=== PATIENT | female | born 1945 | race Two or more races ===

== ENCOUNTER 2018-09-03 10:12 | Inpatient (IN) | payer OTHER ==
[~2018-09-03] VITALS: Ht 167.6 cm; Wt 86.6 kg
--- NOTE | 2018-09-03 10:29 | NUR ---
PT BIB [facility] [address] & [employer] OFFICERS. PT C/O MORALES & BLURRED VISION, BP ELEVATED HASN'T TAKING HER BP MEDS, IN CUSTODY SINCE SATURDAY. PT IS AAOX4, NOT IN RESPIRATORY DISTRESS, HOOKED TO RESEARCH CONSULTANT, KEPT RESTED AND COMFORTABLE, WILL CONTINUE TO MONITOR.
--- NOTE | 2018-09-03 10:30 | NUR ---
IV LINE ESTABLISHED, LABS DRAWNED AND SENT TO LAB.
--- NOTE | 2018-09-03 10:40 | NUR ---
SEEN AND EXAMINED BY DR. QUINTEROS.
[2018-09-03] MEDS ORDERED: ASPIRIN 81 MG TAB.CHEW ONE (10:47)
[2018-09-03 10:48] LABS: BASOPHILS # (AUTO) 0.1 /CMM (0.0-0.2); EOSINOPHILS % (AUTO) 4.8 % (0.0-6.0); HEMATOCRIT 34 % (33-45); HEMOGLOBIN 11.3 g/dL (11.5-14.8); LYMPHOCYTES # (AUTO) 1.3 /CMM (0.8-4.8); LYMPHOCYTES % (AUTO) 25.4 % (20.0-44.0); MEAN CORPUSCULAR HGB CONC 34 g/dl (31.0-36.0); MEAN CORPUSCULAR VOLUME 88 fL (82-100); MONOCYTES # (AUTO) 0.3 /CMM (0.1-1.30); MONOCYTES % (AUTO) 5.9 % (2.0-12.0); NEUTROPHILS # (AUTO) 3.3 /CMM (1.8-8.9); NEUTROPHILS % (AUTO) 62.9 % (43.0-81.0); PLATELET COUNT (AUTO) 187 /CMM (150-450); WHITE BLOOD COUNT (AUTO) 5.2 K/uL (4.3-11.0)
--- NOTE | 2018-09-03 10:48 | NUR ---
PANEL ON-CALL PAGED
[2018-09-03 10:55] LABS: CALCIUM, SERUM 10.7 mg/dL (8.5-10.1); CARBON DIOXIDE 27 mmol/L (21-32); CHLORIDE 107 mmol/L (98-107); CREATININE 1.1 mg/dL (0.6-1.3); GLUCOSE 125 mg/dL (74-106); POTASSIUM 3.7 mmol/L (3.5-5.1); SODIUM SERUM 141 mmol/L (136-145); UREA NITROGEN, BLOOD 13 mg/dL (7-18)
[2018-09-03 11:00] LABS: ALANINE AMINOTRANSFERASE 19 U/L (12-78); ALBUMIN 3.6 g/dL (3.4-5.0); ALKALINE PHOSPHATASE 88 U/L (46-116); ASPARTATE AMINOTRANSFERASE 17 U/L (15-37); BILIRUBIN,DIRECT 0.1 mg/dL (0.0-0.2); BILIRUBIN,TOTAL 0.4 mg/dL (0.2-1.0); TOTAL PROTEIN, SERUM 7.5 g/dL (6.4-8.2)
[2018-09-03] MEDS ORDERED: ASPIRIN 325 MG TABLET PO ONE (11:00)
[2018-09-03] MEDS ORDERED: hydrALAZINE HCL IV 20 MG VIAL ONE (11:27)
[2018-09-03] MEDS ORDERED: ACETAMINOPHEN 325 MG TABLET PO PRN (11:30)
[2018-09-03] MEDS ORDERED: ZOLPIDEM TARTRATE 5 MG TABLET PO PRN (11:30)
[2018-09-03] MEDS ORDERED: ONDANSETRON HCL/PF 4 MG/2 ML VIAL IVP PRN (11:30)
[2018-09-03] MEDS ORDERED: CLOPIDOGREL BISULFATE 75 MG TABLET PO SCH (11:30)
[2018-09-03] MEDS ORDERED: hydrALAZINE HCL IV 20 MG VIAL IV ONE (11:30)
[2018-09-03] MEDS ORDERED: MORPHINE SULFATE INJ 2 MG/ML DISP.SYRIN IV PRN (11:30)
[2018-09-03] MEDS ORDERED: CARVEDILOL 6.25 MG TABLET PO SCH (11:30)
[2018-09-03] MEDS ORDERED: ASPIRIN 81 MG TAB.CHEW PO SCH (11:30)
[2018-09-03] MEDS ORDERED: NITROGLYCERIN 0.4 MG/TAB BOTTLE SL PRN (11:30)
[2018-09-03] MEDS ORDERED: HYDROCODONE/APAP 5/325MG 1 EACH TABLET ONE (11:53)
[2018-09-03] MEDS ORDERED: HYDROCODONE/APAP 5/325MG 1 EACH TABLET PO ONE (12:00)
--- NOTE | 2018-09-03 12:19 | NUR ---
MASSEUR/MASSEUSE CALLED: STILL WAITING ON A CALL BACK; MAY RECIEVE EMAIL
[2018-09-03] MEDS ORDERED: DOCU100C36 PO (13:30)
[2018-09-03] MEDS ORDERED: CLON0.3T PO (13:30)
[2018-09-03] MEDS ORDERED: OMEP20CA10 PO (13:30)
[2018-09-03] MEDS ORDERED: FURO-144 PO (13:30)
[2018-09-03] MEDS ORDERED: HYDR-4354 PO (13:30)
[2018-09-03] MEDS ORDERED: ATOR80TA PO (13:30)
[2018-09-03] MEDS ORDERED: SITA50TA PO (13:30)
[2018-09-03] MEDS ORDERED: ASPI-1169 PO (13:30)
[2018-09-03] MEDS ORDERED: METO50TA16 PO (13:30)
[2018-09-03] MEDS ORDERED: LOSA50TA39 PO (13:30)
[2018-09-03] MEDS ORDERED: CLOP75TA15 PO (13:30)
[2018-09-03] MEDS ORDERED: AMLO10TA7 PO (13:30)
[2018-09-03] MEDS ORDERED: ZOLP10TA6 PO (13:30)
[2018-09-03] MEDS ORDERED: CARV25TA PO (13:30)
[2018-09-03] MEDS ORDERED: BENA40TA8 PO (13:30)
[2018-09-03] MEDS ORDERED: GABA-534 PO (13:30)
--- NOTE | 2018-09-03 14:07 | NUR ---
BED GIVEN 328-1 TELE.
--- NOTE | 2018-09-03 14:25 | NUR ---
REPORT GIVEN TO REGLA MELO FOR LALITHA.
[2018-09-03] MEDS ORDERED: LOSARTAN POTASSIUM 50 MG TABLET PO SCH (14:30)
[2018-09-03] MEDS ORDERED: GABAPENTIN 300 MG CAPSULE PO SCH (14:30)
[2018-09-03] MEDS ORDERED: FUROSEMIDE 40 MG TABLET PO SCH (14:30)
[2018-09-03] MEDS ORDERED: IOHEXOL-350 100 ML VIAL IV ONE (14:44)
[2018-09-03] MEDS ORDERED: IV NS 0.9% 250 ML IV ONE (14:44)
[2018-09-03] MEDS ORDERED: CT SWABBABLE VALVE TRANS SET 1 EA INFUS.SET MC ONE (14:44)
[2018-09-03] MEDS ORDERED: METOPROLOL TARTRATE INJ 5 MG/5 ML AMPUL ONE (14:45)
--- NOTE | 2018-09-03 15:00 | NUR ---
PT WENT TO RADIOLOGY FOR HEART SCAN.
[2018-09-03] MEDS: ASPIRIN 81 MG TAB.CHEW PO SCH (15:20)
--- NOTE | 2018-09-03 15:20 | NUR ---
STONE RUBBER NOTES RECEIVED PATIENT ALERT AND ORIENTED X4, NO RESPIRATORY DISTRESS NOTED. O2 SAT AT 99% ON ROOM AIR. DENIES ANY CHEST PAIN, TELE MONITOR ON SHOWING SR AT 84. PATIENT HAS A RT AC SL #20G INTACT AND PATENT. SKIN DRY, WARM AND INTACT, NO SKIN BREAKDOWN. PATIENT'S BELONGINGS COUNTED AND SIGNED FOR, AND AT PATIENT'S BEDSIDE. MEDICATIONS GIVEN ORDERED. PATIENT'S NEEDS ATTENDED. BED IN LOW AND LOCKED POSITION, CALL LIGHT WITHIN REACH. MD ORDERS CARRIED OUT. WILL CONTINUE TO MONITOR.
[2018-09-03] MEDS: CLOPIDOGREL BISULFATE 75 MG TABLET PO SCH (15:55)
[2018-09-03] MEDS: AMLODIPINE BESYLATE 10 MG TABLET PO SCH (15:56)
[2018-09-03 16:00] VITALS: BP 169/89
[2018-09-03] MEDS: DOCUSATE SODIUM 100 MG CAPSULE PO SCH (16:04)
[2018-09-03] MEDS: CLONIDINE HCL 0.1 MG TABLET PO SCH (16:04)
[2018-09-03] MEDS: BENAZEPRIL HCL 20 MG TABLET PO SCH (16:05)
[2018-09-03] MEDS: GABAPENTIN 300 MG CAPSULE PO SCH (16:05)
[2018-09-03] MEDS: FUROSEMIDE 40 MG TABLET PO SCH (16:05)
--- NOTE | 2018-09-03 18:20 | NUR ---
TEST CARRIER NOTES PATIENT ALERT AND ORIENTED X4. PATIENT WITH NO RESPIRATORY DISTRESS, NO C/O CHEST PAIN AT THIS TIME. SKIN WARM TO TOUCH. PATIENT'S IV SL ON RAC #20G, INTACT AND PATENT. POLICE OFFICERS STILL AT BEDSIDE IN PATIENT'S ROOM. WILL ENDORSE TO ONCOMING SHIFT.
--- NOTE | 2018-09-03 19:40 | NUR ---
COMMUNITY EDUCATION SPECIALIST OPENING NOTES RECEIVED PATIENT IN BED AWAKE, ALERT AND ORIENTED X4, VERBALLY RESPONSIVE, ABLE TO MAKE NEEDS KNOWN. POLICE OFFICERS AT BEDSIDE. BREATHING EVEN AND UNLABORED. NO SOB NOTED. TOLERATING ROOM AIR. NO COMPLAINTS OF PAIN OR DISCOMFORT. NO FACIAL GRIMACING. IV ON RIGHT AC G#20 INTACT AND PATENT. SKIN DRY AND WARM TO TOUCH. AFEBRILE. ALL OTHER NEEDS MET. SAFETY MEASURES IN PLACE. CALL LIGHT WITHIN REACH. WILL CONTINUE TO MONITOR.
[2018-09-03 20:16] VITALS: BP 146/70
[2018-09-03] MEDS: CARVEDILOL 12.5 MG TABLET PO SCH (20:32)
--- NOTE | 2018-09-03 20:58 | NUR ---
FRUIT RECEIVER NOTES RECEIVED CRITICAL RESULT FOR TROPONIN 0.430. PREVIOUS RESULT WAS 0.403. PATIENT IS SINUS ON TELE MONITOR. NO COMPLAINTS OF CHEST PAIN. INFORMED SALESPERSON HEARING AIDS LOKI YORK WITH NO NEW ORDERS AT THIS TIME. WILL CONTINUE TO MONITOR.
--- NOTE | 2018-09-03 21:08 | NUR ---
HAND BANDER NOTES PATIENT REQUESTED FOR A STRONGER PAIN MEDICATION FOR HEADACHE. PATIENT STATED THAT TYLENOL DID NOT GIVE HER RELIEF. INFORMED LEGAL MEDIATOR LOKI YORK REGARDING PATIENT'S REQUEST WITH ORDERS FOR NORCO 5-325MG Q6H PRN FOR HEADACHE. ORDER NOTED AND CARRIED OUT. WILL CONTINUE TO MONITOR.
[2018-09-03] MEDS: HYDROCODONE/APAP 5/325MG 1 EACH TABLET PO PRN (21:34)
[2018-09-03] MEDS: ATORVASTATIN 40 MG TABLET PO SCH (21:34)
--- NOTE | 2018-09-03 23:57 | NUR ---
COMPOUND FILLER NOTES RECEIVED CRITICAL RESULT FOR TROPONIN 0.441. PREVIOUS RESULT WAS 0.430. PATIENT IS SINUS ON TELE MONITOR. NO COMPLAINTS OF CHEST PAIN. INFORMED MANAGED SERVICES SALES CONSULTANT LOKI YORK WITH NO NEW ORDERS AT THIS TIME. WILL CONTINUE TO MONITOR.
[2018-09-04 00:52] VITALS: BP 133/69
[2018-09-04 04:00] VITALS: BP 164/96
[2018-09-04 06:25] LABS: EOSINOPHILS % (AUTO) 5.2 % (0.0-6.0); HEMATOCRIT 29 % (33-45); LYMPHOCYTES # (AUTO) 1.7 /CMM (0.8-4.8); LYMPHOCYTES % (AUTO) 35.4 % (20.0-44.0); MEAN CORPUSCULAR HGB CONC 34 g/dl (31.0-36.0); MEAN CORPUSCULAR VOLUME 88 fL (82-100); MONOCYTES # (AUTO) 0.3 /CMM (0.1-1.30); MONOCYTES % (AUTO) 6.7 % (2.0-12.0); NEUTROPHILS # (AUTO) 2.4 /CMM (1.8-8.9); NEUTROPHILS % (AUTO) 51.7 % (43.0-81.0); PLATELET COUNT (AUTO) 168 /CMM (150-450); RED BLOOD CELL COUNT(AUTO) 3.34 MIL/uL (4.0-5.2); WHITE BLOOD COUNT (AUTO) 4.7 K/uL (4.3-11.0)
[2018-09-04 06:40] LABS: CHOLESTEROL 186 mg/dL (<200); HDL CHOLESTEROL 36 mg/dL (40-60); LDL 115 mg/dL (0-99); TRIGLYCERIDES 152 mg/dL (30-150)
[2018-09-04 06:42] LABS: ALANINE AMINOTRANSFERASE 14 U/L (12-78); ALKALINE PHOSPHATASE 76 U/L (46-116); ASPARTATE AMINOTRANSFERASE 11 U/L (15-37); BILIRUBIN,TOTAL 0.4 mg/dL (0.2-1.0); CALCIUM, SERUM 10.2 mg/dL (8.5-10.1); CARBON DIOXIDE 24 mmol/L (21-32); CHLORIDE 109 mmol/L (98-107); CREATININE 1.3 mg/dL (0.6-1.3); GLUCOSE 110 mg/dL (74-106); MAGNESIUM 1.7 mg/dL (1.8-2.4); PHOSPHORUS 2.2 mg/dL (2.5-4.9); POTASSIUM 3.4 mmol/L (3.5-5.1); SODIUM SERUM 141 mmol/L (136-145); TOTAL PROTEIN, SERUM 6.4 g/dL (6.4-8.2); UREA NITROGEN, BLOOD 13 mg/dL (7-18)
--- NOTE | 2018-09-04 06:42 | NUR ---
MANAGER EMPLOYMENT NOTES RECEIVED TROPONIN LEVEL OF 0.419. DECREASED FROM PRIOR RESULTS. PATIENT STABLE. NO DISTRESS. NO CHEST PAIN. SINUS ON TELE MONITOR. WILL CONTINUE TO MONITOR.
--- NOTE | 2018-09-04 07:07 | NUR ---
GRAIN MILL WORKER CLOSING NOTES PATIENT RESTING IN BED. NOT IN ANY DISTRESS. POLICE OFFICERS AT BEDSIDE. BREATHING EVEN AND UNLABORED. NO SOB NOTED. TOLERATING ROOM AIR. NO COMPLAINTS OF PAIN OR DISCOMFORT. NO FACIAL GRIMACING. IV ON RIGHT AC G#20 INTACT AND PATENT. SKIN DRY AND WARM TO TOUCH. ALL OTHER NEEDS MET. SAFETY MEASURES IN PLACE. CALL LIGHT WITHIN REACH. WILL ENDORSE TO ONCOMING NURSE FOR LALITHA.
--- NOTE | 2018-09-04 07:40 | NUR ---
GAME ARTIST NOTES PATIENT AWAKE IN BED, ALERT AND ORIENTED X4, OFFICERS AT BEDSIDE. PATIENT WITH NO RESPIRATORY DISTRESS NOTED, DENIES ANY PAIN AT THIS TIME. SKIN DRY AND WARM TO TOUCH. IV SL ON THE RAC #20G INTACT AND PATENT. PATIENT'S NEEDS MET. BED ON LOW AND LOCKED POSITION, CALL LIGHT WITHIN REACH. WILL CONTINUE TO MONITOR.
[2018-09-04 08:00] VITALS: BP 152/87
[2018-09-04] MEDS: PANTOPRAZOLE 40 MG TABLET.DR PO SCH (08:32)
[2018-09-04] MEDS: NEUTRA PHOS 1 POWD.PACKET PO SCH ×2 (08:32→16:39)
[2018-09-04] MEDS: ASPIRIN 81 MG TAB.CHEW PO SCH (08:32)
[2018-09-04] MEDS: BENAZEPRIL HCL 20 MG TABLET PO SCH ×2 (08:33→17:05)
[2018-09-04] MEDS: CLONIDINE HCL 0.1 MG TABLET PO SCH ×3 (08:33→17:05)
[2018-09-04] MEDS: FUROSEMIDE 40 MG TABLET PO SCH ×2 (08:34→17:06)
[2018-09-04] MEDS: ISOSORBIDE DINITRATE (20MG) 20 MG TABLET PO SCH ×2 (08:34→17:06)
[2018-09-04] MEDS: CARVEDILOL 12.5 MG TABLET PO SCH ×2 (08:34→21:00)
[2018-09-04] MEDS: AMLODIPINE BESYLATE 10 MG TABLET PO SCH (08:34)
[2018-09-04] MEDS: LINAGLIPTIN 5 MG TABLET PO SCH (08:35)
[2018-09-04] MEDS: DOCUSATE SODIUM 100 MG CAPSULE PO SCH ×2 (08:35→17:11)
[2018-09-04] MEDS: hydrALAZINE HCL 50 MG TABLET PO SCH ×3 (08:35→17:06)
[2018-09-04] MEDS: CLOPIDOGREL BISULFATE 75 MG TABLET PO SCH (08:35)
[2018-09-04] MEDS: GABAPENTIN 300 MG CAPSULE PO SCH ×3 (08:35→17:07)
[2018-09-04] MEDS: Magnesium 1GM/D5W 100ML PREMIX 100 ML IV SCH ×3 (08:37→09:37)
[2018-09-04] MEDS ORDERED: K PHOS NEUTRAL 250 MG TABLET PO ONE (09:30)
[2018-09-04] MEDS ORDERED: POTASSIUM CHLORIDE 20 MEQ TAB.PRT.SR PO SCH (11:00)
--- NOTE | 2018-09-04 13:14 | NUR ---
M/S RN NOTES PATIENT RELEASED FROM POLICE CUSTODY. ALL VALUABLES ACCOUNTED FOR AND SIGNED, SENT TO SAFE. ALL HOME MEDS SENT TO PHARMACY.
[2018-09-04 16:00] VITALS: BP 123/66
--- NOTE | 2018-09-04 17:46 | NUR ---
M/S RN NOTES PATIENT ALERT AND ORIENTED X4, NO RESPIRATORY DISTRESS NOTED, TOLERATING RA. DENIES ANY PAIN AT THIS TIME. SKIN WARM TO TOUCH. IV SL ON RAC #20G INTACT AND PATENT, NO REDNESS OR INFILTRATION. ALL ORDERS IMPLEMENTED. PATIENT'S NEEDS ATTENDED. WILL ENDORSE TO ONCOMING NURSE.
--- NOTE | 2018-09-04 19:29 | NUR ---
RN MS OPENING NOTES RECEIVED PATIENT IN BED AWAKE, ALERT AND ORIENTED X4, VERBALLY RESPONSIVE, ABLE TO MAKE NEEDS KNOWN. BREATHING EVEN AND UNLABORED. NO SOB NOTED. TOLERATING ROOM AIR. NO COMPLAINTS OF PAIN OR DISCOMFORT. NO FACIAL GRIMACING. IV ON RIGHT AC G#20 INTACT AND PATENT. SKIN DRY AND WARM TO TOUCH. AFEBRILE. ALL OTHER NEEDS MET. SAFETY MEASURES IN PLACE. CALL LIGHT WITHIN REACH. WILL CONTINUE TO MONITOR.
[2018-09-04 20:00] VITALS: BP 128/69
[2018-09-04] MEDS: ATORVASTATIN 40 MG TABLET PO SCH (21:00)
[2018-09-04] MEDS ORDERED: ATORVASTATIN 40 MG TABLET PO SCH (22:00)
[2018-09-04] MEDS: HYDROCODONE/APAP 5/325MG 1 EACH TABLET PO PRN (23:33)
--- NOTE | 2018-09-05 06:35 | NUR ---
RN MS CLOSING NOTES PATIENT RESTING IN BED. NO ACUTE CHANGES THROUGHOUT SHIFT. BREATHING EVEN AND UNLABORED. NO SOB NOTED. TOLERATING ROOM AIR. NO COMPLAINTS OF PAIN OR DISCOMFORT. NO FACIAL GRIMACING. IV ON RIGHT AC G#20 INTACT AND PATENT. SKIN DRY AND WARM TO TOUCH. ALL OTHER NEEDS MET. SAFETY MEASURES IN PLACE. CALL LIGHT WITHIN REACH. WILL ENDORSE TO ONCOMING NURSE FOR LALITHA.
[2018-09-05 07:07] LABS: CALCIUM, SERUM 10.5 mg/dL (8.5-10.1); CARBON DIOXIDE 23 mmol/L (21-32); CHLORIDE 107 mmol/L (98-107); CREATININE 1.4 mg/dL (0.6-1.3); GLUCOSE 110 mg/dL (74-106); PHOSPHORUS 3.2 mg/dL (2.5-4.9); POTASSIUM 3.9 mmol/L (3.5-5.1); SODIUM SERUM 141 mmol/L (136-145); UREA NITROGEN, BLOOD 20 mg/dL (7-18)
[2018-09-05 08:00] VITALS: BP 152/82
--- NOTE | 2018-09-05 08:00 | NUR ---
m/s furniture polisher: initial assessment received pt in bed awake,a/ox4; ambulatory. no c/o pain or any discomfort. for d'c home today. instructed to call for assistance. will monitor.
[2018-09-05 08:14] VITALS: BP 152/82
[2018-09-05] MEDS: AMLODIPINE BESYLATE 10 MG TABLET PO SCH (08:24)
[2018-09-05] MEDS: PANTOPRAZOLE 40 MG TABLET.DR PO SCH (08:24)
[2018-09-05] MEDS: GABAPENTIN 300 MG CAPSULE PO SCH (08:25)
[2018-09-05] MEDS: ISOSORBIDE DINITRATE (20MG) 20 MG TABLET PO SCH (08:25)
[2018-09-05] MEDS: CLOPIDOGREL BISULFATE 75 MG TABLET PO SCH (08:25)
[2018-09-05] MEDS: LINAGLIPTIN 5 MG TABLET PO SCH (08:25)
[2018-09-05] MEDS: BENAZEPRIL HCL 20 MG TABLET PO SCH (08:25)
[2018-09-05 08:26] VITALS: BP 152/82
[2018-09-05] MEDS: DOCUSATE SODIUM 100 MG CAPSULE PO SCH (08:26)
[2018-09-05] MEDS: hydrALAZINE HCL 50 MG TABLET PO SCH (08:26)
[2018-09-05] MEDS: CARVEDILOL 12.5 MG TABLET PO SCH (08:26)
[2018-09-05] MEDS: FUROSEMIDE 40 MG TABLET PO SCH (08:26)
[2018-09-05] MEDS: ASPIRIN 81 MG TAB.CHEW PO SCH (08:26)
[2018-09-05] MEDS: CLONIDINE HCL 0.1 MG TABLET PO SCH (08:26)
[2018-09-05] MEDS ORDERED: hydrALAZINE HCL 50 MG TABLET PO SCH (09:00)
--- NOTE | 2018-09-05 09:00 | NUR ---
m/s sales development associate: cardio f/u new order to received to increase hydralazine to 100mg po tid. pt had 50mg po this morning, will monitor b/p before d'c home today. pt aware. will continue to monitor.
--- NOTE | 2018-09-05 09:15 | NUR ---
m/s nat instructor: md visit seen and examined by dr. tang at this time. pt for d'c home today. pt verbalized understanding.
--- NOTE | 2018-09-05 11:00 | NUR ---
m/s precision lens grinder apprentice: md visit mg (acnp student) at bedside at this time.
--- NOTE | 2018-09-05 12:00 | NUR ---
m/s headhunter: notes receive order to d'c pt home with Discharge instructions <Follow up with PCP in 2 weeks, Resume home meds. order acknowledged.
--- NOTE | 2018-09-05 12:10 | NUR ---
m/s golf course assistant: notes all belongings/valuable returned to pt. discharge instructions with prescriptions given to pt and verbalized understanding. lunch served. pt will go after lunch as stated via taxi with voucher.
--- NOTE | 2018-09-05 12:50 | NUR ---
m/s hydro station operator: notes h/l removed with tip intact with no bleeding, no redness, and no swelling. pt getting dress at this time. will monitor.
--- NOTE | 2018-09-05 13:20 | NUR ---
m/s quality cloth tester: discharged discharged home via taxi with voucher with all d'c papers and valuables in stable condition.
== END 2018-09-05 13:20 | disposition home or self-care (01) | DRG 280 ==
LOC: ER 10:15 → TELE 14:17 → MED 15:44 → TELE 20:07 → MED 09-04 18:41
PROVIDERS: ADMIT Internal Medicine; ATTEND Internal Medicine
DX: I21.4 Non-ST elevation (NSTEMI) myocardial infarction (principal); N17.0 Acute kidney failure with tubular necrosis; E87.1 Hypo-osmolality and hyponatremia; E11.9 Type 2 diabetes mellitus without complications; I10 Essential (primary) hypertension; I25.10 Atherosclerotic heart disease of native coronary artery without angina pectoris; Z95.5 Presence of coronary angioplasty implant and graft; Z86.73 Personal history of transient ischemic attack (TIA), and cerebral infarction without residual deficits; D63.8 Anemia in other chronic diseases classified elsewhere; E78.5 Hyperlipidemia, unspecified; E83.52 Hypercalcemia; E87.6 Hypokalemia; Z79.82 Long term (current) use of aspirin; E83.42 Hypomagnesemia; E83.39 Other disorders of phosphorus metabolism
CPT/HCPCS: 36415; 71045-TC; 75574; 80048-TC; 80053-TC; 80061-TC; 80076-TC; 83735-TC; 84100-TC; 84484-TC; 85025-TC; 87081-TC; 93307-TC; A4216; G0378; J0360; J3475; J3490; J7030; J7040; J7050; Q9967

== ENCOUNTER 2021-01-02 16:04 | Inpatient (IN) | payer MEDICARE, OTHER ==
[~2021-01-02] VITALS: Ht 172.7 cm; Wt 88.6 kg
[~2021-01-02 16:04] MED LIST: AMLO-213 PO; ASPI-1169 PO; ATOR80TA PO; BENA40TA8 PO; CARV25TA PO; CLON0.3T PO; CLOP75TA15 PO; DOCU100C36 PO; FURO-144 PO; GABA-534 PO; HYDR-4354 PO; LOSA50TA39 PO; METO50TA16 PO; OMEP20CA15 PO; SITA50TA PO; ZOLP10TA6 PO
--- NOTE | 2021-01-02 16:18 | NUR ---
nagi, from home, c/o sob 100% on room air. Patient a/ox4, breathing even and unlabored, no sob noted. Needs attended. Kept comfortable.
--- NOTE | 2021-01-02 16:25 | NUR ---
DR. RUIZ AT BEDSIDE FOR EVAL.
[2021-01-02] MEDS ORDERED: ASPIRIN 325 MG TABLET ONE (16:34)
[2021-01-02] MEDS ORDERED: NITROGLYCERIN PACKET 1 GM PACKET ONE (16:34)
--- NOTE | 2021-01-02 16:40 | NUR ---
IV LINE ESTABLISHED, BLOOD DRAWN AND SENT TO LAB.
[2021-01-02 16:48] LABS: BASOPHILS # (AUTO) 0.1 K/uL (0.0-0.2); BASOPHILS % (AUTO) 1.2 % (0.0-2.0); EOSINOPHILS % (AUTO) 2.5 % (0.0-6.0); HEMATOCRIT 28 % (33-45); HEMOGLOBIN 9.3 g/dL (11.5-14.8); LYMPHOCYTES # (AUTO) 1.1 K/uL (0.8-4.8); LYMPHOCYTES % (AUTO) 20.6 % (20.0-44.0); MEAN CORPUSCULAR HGB CONC 34 g/dl (31.0-36.0); MEAN CORPUSCULAR VOLUME 88 fL (82-100); MONOCYTES # (AUTO) 0.3 K/uL (0.1-1.30); MONOCYTES % (AUTO) 4.8 % (2.0-12.0); NEUTROPHILS # (AUTO) 3.9 K/uL (1.8-8.9); NEUTROPHILS % (AUTO) 70.9 % (43.0-81.0); PLATELET COUNT (AUTO) 163 K/uL (150-450); RED BLOOD CELL COUNT(AUTO) 3.14 MIL/uL (4.0-5.2); WHITE BLOOD COUNT (AUTO) 5.6 K/uL (4.3-11.0)
[2021-01-02 16:54] LABS: CALCIUM, SERUM 10.5 mg/dL (8.5-10.1); CARBON DIOXIDE 24 mmol/L (21-32); CHLORIDE 107 mmol/L (98-107); CREATININE 1.8 mg/dL (0.6-1.3); GLUCOSE 103 mg/dL (74-106); POTASSIUM 4.5 mmol/L (3.5-5.1); SODIUM SERUM 141 mmol/L (136-145); UREA NITROGEN, BLOOD 14 mg/dL (7-18)
[2021-01-02] MEDS ORDERED: PROM25TA15 PO (16:58)
[2021-01-02] MEDS ORDERED: TIOT18CA3 IH (16:58)
[2021-01-02] MEDS ORDERED: HYDR-4209 PO (16:58)
[2021-01-02] MEDS ORDERED: ALBU8.5H8 IH (16:58)
[2021-01-02] MEDS ORDERED: LACT10SO3 PO (16:58)
[2021-01-02] MEDS ORDERED: [UNRECOGNIZED DRUG - CODE] PO (16:58)
[2021-01-02] MEDS ORDERED: NITROGLYCERIN PACKET 1 GM PACKET TD ONE (17:00)
[2021-01-02] MEDS ORDERED: ASPIRIN 325 MG TABLET PO ONE (17:00)
[2021-01-02 17:06] LABS: ALANINE AMINOTRANSFERASE 14 U/L (12-78); ALBUMIN 3.4 g/dL (3.4-5.0); ALKALINE PHOSPHATASE 67 U/L (46-116); ASPARTATE AMINOTRANSFERASE 19 U/L (15-37); BILIRUBIN,TOTAL 0.4 mg/dL (0.2-1.0); TOTAL PROTEIN, SERUM 7.4 g/dL (6.4-8.2)
--- NOTE | 2021-01-02 17:14 | NUR ---
[facility] CALLED LIABILITY CLAIMS MANAGER PAGED.
[2021-01-02] MEDS ORDERED: FUROSEMIDE 40 MG/4 ML VIAL ONE (17:26)
[2021-01-02] MEDS ORDERED: FUROSEMIDE 40 MG/4 ML VIAL IV ONE (17:30)
[2021-01-02] MEDS ORDERED: ONDANSETRON HCL/PF 4 MG/2 ML VIAL IVP PRN (18:00)
[2021-01-02] MEDS ORDERED: DOCUSATE SODIUM 100 MG CAPSULE PO PRN (18:00)
[2021-01-02] MEDS ORDERED: NITROGLYCERIN 0.4 MG/TAB BOTTLE SL PRN (18:00)
[2021-01-02] MEDS ORDERED: MAG HYDROX/AL HYDROX/SIMETH 30 ML UDC PO PRN (18:00)
--- NOTE | 2021-01-02 18:11 | NUR ---
PATIENT IS AMBULATORY TO RESTROOM. NO DISTRESS NOTED.
--- NOTE | 2021-01-02 18:15 | NUR ---
BED 324-1
[2021-01-02] MEDS ORDERED: DEXTROSE 50%-WATER 50 ML DISP.SYRIN IV PRN (18:30)
--- NOTE | 2021-01-02 18:45 | NUR ---
TILE LAYER SUPERVISOR AT BEDSIDE.
--- NOTE | 2021-01-02 18:45 | NUR ---
REPORT GIVEN TO MARITZA ARAUZ FOR LALITHA.
--- NOTE | 2021-01-02 19:18 | NUR ---
PRELIMINARY ECHO SHOWED EF 35-40%. ADVISED REGLA NUNEZ OF INITIAL RESULT.
--- NOTE | 2021-01-02 19:25 | NUR ---
PATIENT TRANSFERRED TO ROOM 324-1 VIA ACLS PROTOCOL. IN NO DISTRESS. PATIENT A/OX4, BREATHING EVEN AND UNLABORED. ENDORSED TO LAINA.
[2021-01-02] MEDS ORDERED: IPRATROPIUM NEB FS 0.5 MG/2.5 ML AMPUL.NEB NEB SCH (19:30)
[2021-01-02] MEDS ORDERED: ALBUTEROL FS 2.5 MG/0.5 ML VIAL.NEB NEB SCH (19:30)
--- NOTE | 2021-01-02 19:30 | NUR ---
GLOVE TURNER AND FORMER AUTOMATIC ADMITTING NOTE PT A/OX4; ABLE TO MAKE NEEDS KNOWN. TOLERATING ROOM AIR WELL WITH NO SOB. EXTERNAL FOREST PATHOLOGY TEACHER READS NSR @ 70'S. RAC #20G S/L; PATENT AND INTACT. DENIES PAIN OR DISCOMFORT AT THIS TIME. ALL PATIENT BELONGINGS WITH PT AT BEDSIDE. ORIENTED PATIENT TO ROOM, STAFF, AND UNIT. SAFETY MEASURES IN PLACE: BED IN LOWEST LOCKED POSITION, SIDE RAILS UPX2, CALL LIGHT WITHIN EASY REACH. PT IN STABLE CONDITION; WILL CONTINUE PLAN OF CARE.
[2021-01-02] MEDS: BLOOD SUGAR DIAGNOSTIC 1 EACH STRIP IN SCH (22:57)
[2021-01-02] MEDS: ATORVASTATIN 40 MG TABLET PO SCH (22:58)
--- NOTE | 2021-01-02 23:21 | NUR ---
INDUSTRIAL ROOF PLUMBER NOTE PT C/O 9/10 L ARM PAIN S/P L LIGATION OF AV FISTULA. ADMIN NORCO 10-325MG ORDERED. WILL REASSESS FOR PAIN IN 30 MINUTES.
[2021-01-02] MEDS: ACETAMINOPHEN 325 MG TABLET PO PRN (23:27)
--- NOTE | 2021-01-02 23:28 | NUR ---
PLATE SETTER NOTE PT C/O HEADACHE. ADMIN TYLENOL ORDERED. WILL REASSESS IN 30 MINUTES.
[2021-01-03] VITALS (7 sets, daily range): BP systolic 151–181; BP diastolic 70–98
[2021-01-03] MEDS: MORPHINE SULFATE INJ 2 MG/ML DISP.SYRIN IV PRN ×2 (01:36→16:31)
--- NOTE | 2021-01-03 01:36 | NUR ---
PRODUCE INSPECTOR NOTE PT C/O 11/12 HEADACHE. ADMIN MORPHINE ORDERED. WILL REASSESS IN 30 MINUTES.
--- NOTE | 2021-01-03 04:20 | NUR ---
NURSING HOME MANAGER NOTE PTS BP 172/ 92. HR 70. PAGED DR WALL FOR ORDERS. AWAITING FOR CALL BACK
[2021-01-03] MEDS ORDERED: CLONIDINE HCL 0.1 MG TABLET PO ONE (05:00)
[2021-01-03 06:03] LABS: BASOPHILS # (AUTO) 0.1 K/uL (0.0-0.2); BASOPHILS % (AUTO) 1.2 % (0.0-2.0); EOSINOPHILS % (AUTO) 3.6 % (0.0-6.0); HEMATOCRIT 29 % (33-45); HEMOGLOBIN 9.7 g/dL (11.5-14.8); LYMPHOCYTES # (AUTO) 1.8 K/uL (0.8-4.8); LYMPHOCYTES % (AUTO) 29.9 % (20.0-44.0); MEAN CORPUSCULAR HGB CONC 33 g/dl (31.0-36.0); MEAN CORPUSCULAR VOLUME 89 fL (82-100); MONOCYTES # (AUTO) 0.3 K/uL (0.1-1.30); NEUTROPHILS # (AUTO) 3.6 K/uL (1.8-8.9); NEUTROPHILS % (AUTO) 60.3 % (43.0-81.0); PLATELET COUNT (AUTO) 174 K/uL (150-450); RED BLOOD CELL COUNT(AUTO) 3.28 MIL/uL (4.0-5.2); WHITE BLOOD COUNT (AUTO) 5.9 K/uL (4.3-11.0)
[2021-01-03] MEDS: BLOOD SUGAR DIAGNOSTIC 1 EACH STRIP IN SCH ×4 (06:38→22:06)
[2021-01-03] MEDS: INSULIN REGULAR, HUMAN 100 UNIT/ML 3 ML VIAL SQ PRN ×4 (06:39→22:08)
--- NOTE | 2021-01-03 06:57 | NUR ---
OFFICE SUPPORT ASSOCIATE CLOSING NOTE PT A/OX4; ABLE TO MAKE NEEDS KNOWN. TOLERATING ROOM AIR WELL WITH NO SOB. EXTERNAL SILK HANGER READS NSR @ 70'S. RAC #20G S/L; PATENT AND INTACT. DENIES PAIN OR DISCOMFORT AT THIS TIME. SKIN INTACT. SAFETY MEASURES IN PLACE: BED IN LOWEST LOCKED POSITION, SIDE RAILS UPX2, CALL LIGHT WITHIN EASY REACH. PT IN STABLE CONDITION; WILL ENDORSE PLAN OF CARE TO ONCOMING MORNING RN.
[2021-01-03 07:27] LABS: CHOLESTEROL 149 mg/dL (<200); HDL CHOLESTEROL 51 mg/dL (40-60); LDL 77 mg/dL (0-99); THYROID STIMULATING HORMONE 0.063 uIU/mL (0.358-3.74); TRIGLYCERIDES 123 mg/dL (30-150)
--- NOTE | 2021-01-03 07:35 | NUR ---
RN OPENING NOTES Received patient in bed, no apparent distress noted, AO X 4, no SOB, breathing even and unlabored, denies any pain or discomfort at this time. Skin warm to touch, no pallor or cyanosis noted. Patient has a pacemaker, no s/s of malfunction at this time. Safety measures maintained, brakes locked, side rails up X2, call light left within reach, will monitor closely for any changes.
[2021-01-03 08:06] LABS: ALANINE AMINOTRANSFERASE 16 U/L (12-78); ALBUMIN 3.5 g/dL (3.4-5.0); ALKALINE PHOSPHATASE 70 U/L (46-116); ASPARTATE AMINOTRANSFERASE 10 U/L (15-37); BILIRUBIN,TOTAL 0.3 mg/dL (0.2-1.0); CALCIUM, SERUM 10.6 mg/dL (8.5-10.1); CARBON DIOXIDE 24 mmol/L (21-32); CHLORIDE 107 mmol/L (98-107); CREATININE 1.8 mg/dL (0.6-1.3); GLUCOSE 107 mg/dL (74-106); MAGNESIUM 1.8 mg/dL (1.8-2.4); POTASSIUM 3.4 mmol/L (3.5-5.1); SODIUM SERUM 141 mmol/L (136-145); TOTAL PROTEIN, SERUM 7.5 g/dL (6.4-8.2); UREA NITROGEN, BLOOD 13 mg/dL (7-18)
[2021-01-03] MEDS: ASPIRIN 81 MG TAB.CHEW PO SCH (08:48)
[2021-01-03] MEDS: CLOPIDOGREL BISULFATE 75 MG TABLET PO SCH (08:48)
[2021-01-03] MEDS: methylPREDNISolone SOD SUCC 40 MG/ML VIAL IV SCH (08:48)
[2021-01-03] MEDS: LEVOTHYROXINE SODIUM 100 MCG TABLET PO SCH (08:48)
[2021-01-03] MEDS: LINAGLIPTIN 5 MG TABLET PO SCH (08:49)
[2021-01-03] MEDS: DOCUSATE SODIUM 100 MG CAPSULE PO SCH ×2 (08:49→16:34)
[2021-01-03] MEDS: CARVEDILOL 6.25 MG TABLET PO SCH ×2 (08:49→16:31)
[2021-01-03] MEDS: GABAPENTIN 300 MG CAPSULE PO SCH ×3 (08:49→16:30)
[2021-01-03] MEDS: BENAZEPRIL HCL 10 MG TABLET PO SCH ×2 (08:50→16:32)
[2021-01-03] MEDS: AMLODIPINE BESYLATE 10 MG TABLET PO SCH (08:50)
[2021-01-03] MEDS: CLONIDINE HCL 0.1 MG TABLET PO SCH ×3 (08:50→16:32)
[2021-01-03] MEDS ORDERED: FUROSEMIDE 40 MG/4 ML VIAL IV SCH (09:00)
[2021-01-03] MEDS: POTASSIUM CHLORIDE 20 MEQ TAB.PRT.SR PO SCH ×3 (09:44→11:38)
[2021-01-03] MEDS: FUROSEMIDE 40 MG/4 ML VIAL IV SCH ×3 (09:44→16:30)
[2021-01-03] MEDS: IPRATROPIUM NEB FS 0.5 MG/2.5 ML AMPUL.NEB NEB SCH ×3 (12:03→20:19)
[2021-01-03] MEDS: ALBUTEROL FS 2.5 MG/0.5 ML VIAL.NEB NEB SCH ×3 (12:03→20:19)
--- NOTE | 2021-01-03 15:56 | NUR ---
SS consult received and SW will follow up at a later time.
--- NOTE | 2021-01-03 18:43 | NUR ---
RN CLOSING NOTES Patient seen comfortably lying in bed, no SOB, breathing even and unlabored, no apparent distress noted, no dizziness, no s/s of pacemaker malfunction at this time. Skin warm to touch, no pallor or cyanosis noted. All meds given per MD order, tolerating well. PAin medications given when non pharmaciological measures ineffective. Call light left within reach, safety measures maintained, brakes locked, side rails up X2, will endorse to next shift for continuity of care.
--- NOTE | 2021-01-03 20:03 | NUR ---
FIRE EXTINGUISHER INSTALLER OPENING NOTE PT A/OX4; ABLE TO MAKE NEEDS KNOWN. TOLERATING ROOM AIR WELL WITH NO SOB. EXTERNAL NAPPER TENDER READS NSR @ 70'S. RAC #20G S/L; PATENT AND INTACT. DENIES PAIN OR DISCOMFORT AT THIS TIME. SAFETY MEASURES IN PLACE: BED IN LOWEST LOCKED POSITION, SIDE RAILS UPX2, CALL LIGHT WITHIN EASY REACH. PT IN STABLE CONDITION; WILL CONTINUE PLAN OF CARE.
[2021-01-03] MEDS ORDERED: hydrALAZINE HCL IV 20 MG VIAL IV PRN (20:30)
[2021-01-03] MEDS: ENOXAPARIN SODIUM 30 MG/0.3 ML DISP.SYRIN SQ SCH (20:41)
[2021-01-03] MEDS: ATORVASTATIN 40 MG TABLET PO SCH (22:05)
--- NOTE | 2021-01-03 22:06 | NUR ---
REFERRAL SPECIALIST NOTE - BP PT BP 181//98 P69. ADMINISTERED HYDRALAZINE PRN ORDERED. WILL REASSESS BP.
[2021-01-03] MEDS: ZOLPIDEM TARTRATE 5 MG TABLET PO PRN (23:09)
--- NOTE | 2021-01-03 23:09 | NUR ---
PAINT GRINDER STONE MILL NOTE - INSOMNIA PT C/O INSOMNIA AND REQUESTED FOR AMBIEN. ADMINISTERED AMBIEN ORDERED. WILL CONT TO REASSESS FOR SLEEP
[2021-01-04] VITALS: BP 166/82
[2021-01-04] MEDS: MORPHINE SULFATE INJ 2 MG/ML DISP.SYRIN IV PRN ×3 (03:19→16:20)
--- NOTE | 2021-01-04 03:19 | NUR ---
ANSWERING SERVICE AGENT NOTE PT C/O 11/12 HEADACHE. ADMIN MORPHINE ORDERED. WILL REASSESS IN 30 MINUTES.
--- NOTE | 2021-01-04 04:15 | NUR ---
SENIOR ADMINISTRATIVE SUPPORT NOTE - EKG NINA RT AT BEDSIDE DOING EKG
--- NOTE | 2021-01-04 05:25 | NUR ---
ASSEMBLER TUBING CLOSING NOTE PT A/OX4; ABLE TO MAKE NEEDS KNOWN. TOLERATING ROOM AIR WELL WITH NO SOB. EXTERNAL COMMERCIAL ACCOUNTANT READS NSR @ 70'S. RAC #20G S/L; PATENT AND INTACT. DENIES PAIN OR DISCOMFORT AT THIS TIME. SAFETY MEASURES IN PLACE: BED IN LOWEST LOCKED POSITION, SIDE RAILS UPX2, CALL LIGHT WITHIN EASY REACH. PT IN STABLE CONDITION; WILL CONTINUE PLAN OF CARE.
[2021-01-04 06:14] LABS: BASOPHILS % (AUTO) 0.3 % (0.0-2.0); HEMATOCRIT 30 % (33-45); HEMOGLOBIN 9.8 g/dL (11.5-14.8); LYMPHOCYTES % (AUTO) 13.5 % (20.0-44.0); MEAN CORPUSCULAR HGB CONC 33 g/dl (31.0-36.0); MEAN CORPUSCULAR VOLUME 89 fL (82-100); MONOCYTES # (AUTO) 0.4 K/uL (0.1-1.30); MONOCYTES % (AUTO) 5.5 % (2.0-12.0); NEUTROPHILS # (AUTO) 5.7 K/uL (1.8-8.9); NEUTROPHILS % (AUTO) 80.7 % (43.0-81.0); PLATELET COUNT (AUTO) 176 K/uL (150-450); RED BLOOD CELL COUNT(AUTO) 3.33 MIL/uL (4.0-5.2); WHITE BLOOD COUNT (AUTO) 7.1 K/uL (4.3-11.0)
[2021-01-04] MEDS: BLOOD SUGAR DIAGNOSTIC 1 EACH STRIP IN SCH ×4 (06:20→21:21)
[2021-01-04] MEDS: INSULIN REGULAR, HUMAN 100 UNIT/ML 3 ML VIAL SQ PRN ×4 (06:21→21:26)
[2021-01-04 06:31] LABS: ALANINE AMINOTRANSFERASE 11 U/L (12-78); ALBUMIN 3.4 g/dL (3.4-5.0); ALKALINE PHOSPHATASE 69 U/L (46-116); ASPARTATE AMINOTRANSFERASE 7 U/L (15-37); BILIRUBIN,TOTAL 0.3 mg/dL (0.2-1.0); CALCIUM, SERUM 10.8 mg/dL (8.5-10.1); CARBON DIOXIDE 24 mmol/L (21-32); CHLORIDE 106 mmol/L (98-107); CREATININE 1.8 mg/dL (0.6-1.3); GLUCOSE 143 mg/dL (74-106); PHOSPHORUS 2.5 mg/dL (2.5-4.9); POTASSIUM 3.6 mmol/L (3.5-5.1); SODIUM SERUM 138 mmol/L (136-145); TOTAL PROTEIN, SERUM 7.4 g/dL (6.4-8.2); UREA NITROGEN, BLOOD 17 mg/dL (7-18)
[2021-01-04] MEDS: LEVOTHYROXINE SODIUM 100 MCG TABLET PO SCH (06:35)
--- NOTE | 2021-01-04 06:36 | NUR ---
PHOTOGRAPHIC LABORATORY TECHNICIAN NOTE PT C/O 11/12 HEADACHE. ADMIN MORPHINE ORDERED. WILL REASSESS IN 30 MINUTES.
[2021-01-04] MEDS: ALBUTEROL FS 2.5 MG/0.5 ML VIAL.NEB NEB SCH ×4 (07:21→20:16)
[2021-01-04] MEDS: IPRATROPIUM NEB FS 0.5 MG/2.5 ML AMPUL.NEB NEB SCH ×4 (07:21→20:15)
--- NOTE | 2021-01-04 07:35 | NUR ---
RN OPENING NOTES Patient seen comfortably lying in bed, AO X 4, no SOB, breathing even and unlabored, no apparent distress noted, denies any pain or discomfort at this time. No s/s of pacemaker malfunction at this time. Call light left within reach, safety measures maintained, brakes locked, side rails up X2, will monitor closely for any changes.
[2021-01-04 07:39] LABS: IRON, SERUM 43 ug/dl (50-175); TOTAL IRON BINDING CAPACITY 219 ug/dl (250-450)
[2021-01-04 07:52] LABS: FERRITIN 210 ng/mL (8-388)
[2021-01-04 08:00] VITALS: BP 165/87
[2021-01-04] MEDS: methylPREDNISolone SOD SUCC 40 MG/ML VIAL IV SCH (08:48)
[2021-01-04] MEDS: ASPIRIN 81 MG TAB.CHEW PO SCH (08:48)
[2021-01-04] MEDS: DOCUSATE SODIUM 100 MG CAPSULE PO SCH ×2 (08:49→18:13)
[2021-01-04] MEDS: LINAGLIPTIN 5 MG TABLET PO SCH (08:49)
[2021-01-04] MEDS: hydrALAZINE HCL 50 MG TABLET PO SCH ×3 (08:49→18:20)
[2021-01-04] MEDS: GABAPENTIN 300 MG CAPSULE PO SCH ×3 (08:49→18:12)
[2021-01-04] MEDS: AMLODIPINE BESYLATE 10 MG TABLET PO SCH (08:49)
[2021-01-04] MEDS: CARVEDILOL 6.25 MG TABLET PO SCH ×2 (08:50→18:21)
[2021-01-04] MEDS: CLOPIDOGREL BISULFATE 75 MG TABLET PO SCH (08:50)
[2021-01-04] MEDS: CLONIDINE HCL 0.1 MG TABLET PO SCH ×3 (08:50→18:22)
[2021-01-04] MEDS: BENAZEPRIL HCL 10 MG TABLET PO SCH ×2 (08:51→18:21)
[2021-01-04] MEDS: POTASSIUM CHLORIDE 20 MEQ TAB.PRT.SR PO SCH (08:51)
[2021-01-04] MEDS ORDERED: FUROSEMIDE 80 MG TABLET PO SCH (09:00)
[2021-01-04] MEDS: NITROGLYCERIN 30 GM TUBE TP SCH ×2 (09:12→21:03)
--- NOTE | 2021-01-04 17:45 | NUR ---
MS REGLA OPENING NOTES RECEIVED PT SITTING IN BED. PT IS A0x4. NO S/SX OF RESPIRATORY DISTRESS NOTED. PT IS ON RA AND TOLERATING WELL. NO SOB NOTED. IV ACCESS IN R AC #20 IS PATENT AND FLUSHING WELL, SALINE LOCKED. SAFETY PRECAUTIONS IN PLACE: BED IN LOWEST, LOCKED POSITION, BRAKES ON, SIDE RAILS UPx2. CALL LIGHT AND TABLE WITHIN REACH. WILL CONTINUE TO MONITOR. Addendum: 01/04/21 at 2337 by GERTRUDIS JENKINS RN RIGHT TIME: 1944
--- NOTE | 2021-01-04 18:38 | NUR ---
RN CLOSING NOTES Patient seen lying in bed, no apparent distress noted, no dizziness, no SOB, breathing even and unlabored, no s/s of pacemaker malfunction at this time, no s/s of hypo or hyperglycemia, insulin given per sliding scale, tolerating well. Skin warm to touch, no pallor or cyanosis noted. All medications given per MD order, tolerating well. Pain medications given when non pharmacological measures ineffective. Call light left within reach, safety measures maintained, brakes locked, side rails up X2, will endorse to next shift for continuity of care.
[2021-01-04 20:00] VITALS: BP 176/87
[2021-01-04] MEDS: ENOXAPARIN SODIUM 30 MG/0.3 ML DISP.SYRIN SQ SCH (21:02)
--- NOTE | 2021-01-04 21:02 | NUR ---
PT COMPLAINED OF NAUSEA. ADMINISTERED ZOFRAN PER MD ORDER.
[2021-01-04] MEDS: ATORVASTATIN 40 MG TABLET PO SCH (21:08)
[2021-01-04] MEDS: ZOLPIDEM TARTRATE 5 MG TABLET PO PRN (23:21)
[2021-01-05] MEDS: BLOOD SUGAR DIAGNOSTIC 1 EACH STRIP IN SCH ×2 (05:53→12:16)
--- NOTE | 2021-01-05 06:02 | NUR ---
MS RN CLOSING NOTES PT SLEEPING IN BED, AWAKENS TO VERBAL STIMULI. PT IS AOx4. NO S/SX OF RESPIRATORY DISTRESS NOTED. PT IS ON RA AND TOLERATING WELL. NO SOB NOTED. IV ACCESS IN R AC #20 IS PATENT AND FLUSHING WELL, SALINE LOCKED. PT STATED SHE HAD NAUSEA SO ZOFRAN WAS ADMINISTERED. ALL NEEDS MET. PT KEPT CLEAN AND DRY. SAFETY PRECAUTIONS IN PLACE: BED IN LOWEST, LOCKED POSITION, BRAKES ON, SIDE RAILS UPx2. CALL LIGHT AND TABLE WITHIN REACH. WILL ENDORSE TO ONCOMING SHIFT.
[2021-01-05 07:16] LABS: ALANINE AMINOTRANSFERASE 13 U/L (12-78); ALBUMIN 3.4 g/dL (3.4-5.0); ALKALINE PHOSPHATASE 63 U/L (46-116); ASPARTATE AMINOTRANSFERASE 8 U/L (15-37); BILIRUBIN,TOTAL 0.2 mg/dL (0.2-1.0); CALCIUM, SERUM 10.5 mg/dL (8.5-10.1); CARBON DIOXIDE 25 mmol/L (21-32); CHLORIDE 105 mmol/L (98-107); CREATININE 1.8 mg/dL (0.6-1.3); GLUCOSE 108 mg/dL (74-106); PHOSPHORUS 2.8 mg/dL (2.5-4.9); POTASSIUM 4.1 mmol/L (3.5-5.1); SODIUM SERUM 139 mmol/L (136-145); TOTAL PROTEIN, SERUM 7.3 g/dL (6.4-8.2); UREA NITROGEN, BLOOD 26 mg/dL (7-18)
[2021-01-05 07:21] LABS: BASOPHILS % (AUTO) 0.3 % (0.0-2.0); EOSINOPHILS % (AUTO) 0.1 % (0.0-6.0); HEMATOCRIT 29 % (33-45); HEMOGLOBIN 9.7 g/dL (11.5-14.8); LYMPHOCYTES # (AUTO) 1.3 K/uL (0.8-4.8); LYMPHOCYTES % (AUTO) 16.7 % (20.0-44.0); MEAN CORPUSCULAR HGB CONC 34 g/dl (31.0-36.0); MEAN CORPUSCULAR VOLUME 89 fL (82-100); MONOCYTES # (AUTO) 0.4 K/uL (0.1-1.30); MONOCYTES % (AUTO) 5.1 % (2.0-12.0); NEUTROPHILS # (AUTO) 6.3 K/uL (1.8-8.9); NEUTROPHILS % (AUTO) 77.8 % (43.0-81.0); PLATELET COUNT (AUTO) 168 K/uL (150-450); RED BLOOD CELL COUNT(AUTO) 3.23 MIL/uL (4.0-5.2); WHITE BLOOD COUNT (AUTO) 8.1 K/uL (4.3-11.0)
--- NOTE | 2021-01-05 07:30 | NUR ---
MS RN OPENING NOTES RECEIVED PT IN BED, AWAKE, A0x4, ABLE TO LET NEEDS KNOWN. NO S/SX OF RESPIRATORY DISTRESS NOTED. PT IS ON RA AND TOLERATING WELL. NO SOB NOTED. IV ACCESS IN R AC #20 IS PATENT AND FLUSHING WELL. SAFETY PRECAUTIONS IN PLACE: BED IN LOWEST, LOCKED POSITION, BRAKES ON, SIDE RAILS UPx2. CALL LIGHT AND TABLE WITHIN REACH. WILL CONTINUE TO MONITOR ACCORDINGLY.
[2021-01-05] MEDS: IPRATROPIUM NEB FS 0.5 MG/2.5 ML AMPUL.NEB NEB SCH ×4 (07:35→14:35)
[2021-01-05] MEDS: ALBUTEROL FS 2.5 MG/0.5 ML VIAL.NEB NEB SCH ×4 (07:35→14:35)
[2021-01-05] MEDS: LEVOTHYROXINE SODIUM 100 MCG TABLET PO SCH (07:43)
[2021-01-05 08:00] VITALS: BP 154/90
[2021-01-05] MEDS ORDERED: ISOSORBIDE DINITRATE (20MG) 20 MG TABLET PO SCH (09:00)
[2021-01-05] MEDS ORDERED: FUROSEMIDE 40 MG TABLET PO SCH (09:00)
[2021-01-05] MEDS ORDERED: CARVEDILOL 6.25 MG TABLET PO SCH (09:00)
[2021-01-05] MEDS: GABAPENTIN 300 MG CAPSULE PO SCH ×2 (09:05→13:23)
[2021-01-05] MEDS: hydrALAZINE HCL 50 MG TABLET PO SCH ×2 (09:06→13:23)
[2021-01-05] MEDS: ASPIRIN 81 MG TAB.CHEW PO SCH (09:06)
[2021-01-05] MEDS: LINAGLIPTIN 5 MG TABLET PO SCH (09:06)
[2021-01-05] MEDS: BENAZEPRIL HCL 10 MG TABLET PO SCH (09:07)
[2021-01-05] MEDS: DOCUSATE SODIUM 100 MG CAPSULE PO SCH (09:07)
[2021-01-05] MEDS: POTASSIUM CHLORIDE 20 MEQ TAB.PRT.SR PO SCH (09:07)
[2021-01-05] MEDS: CLOPIDOGREL BISULFATE 75 MG TABLET PO SCH (09:08)
[2021-01-05] MEDS: AMLODIPINE BESYLATE 10 MG TABLET PO SCH (09:09)
[2021-01-05] MEDS: ACETAMINOPHEN 325 MG TABLET PO PRN (09:31)
[2021-01-05] MEDS: MORPHINE SULFATE INJ 2 MG/ML DISP.SYRIN IV PRN (09:35)
[2021-01-05] MEDS ORDERED: FURO-144 PO (10:04)
[2021-01-05] MEDS ORDERED: CARV25TA PO (10:04)
[2021-01-05] MEDS ORDERED: PRED20TA PO (10:07)
[2021-01-05 15:50] VITALS: BP 142/77
--- NOTE | 2021-01-05 16:35 | NUR ---
MS HAND BENDER NOTES DISCHARGED PATIENT IN STABLE CONDITION. VITAL SIGNS WITHIN NORMAL LIMITS. MEDICATION INSTRUCTIONS PROVIDED TO PATIENT, HEALTH EDUCATION PROVIDED. INSTRUCTED TO FOLLOW UP WITH DR. XIAO AND DR. STEELE, BUSINESS CARDS PROVIDED OF BOTH MD, PATIENT VERBALIZED UNDERSTANDING. BELONGINGS ACCOUNTED AND SIGNED FOR. IV ACCESS REMOVED, COVER WITH GAUZE AND SECURE WITH TAPE. NO BLEEDING NOTED. ARMBAND REMOVED. PICKED UP BY 3 EMT'S FROM [facility] [address] AT 1630. LEFT UNIT IN STABLE CONDITION.
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
== END 2021-01-05 16:30 | disposition home or self-care (01) | DRG 280 ==
LOC: ER 16:05 → TELE 18:31 → MED 01-04 11:05
PROVIDERS: ADMIT Registered Nurse; ATTEND Internal Medicine
DX: I25.10 Atherosclerotic heart disease of native coronary artery without angina pectoris (principal); I50.23 Acute on chronic systolic (congestive) heart failure; I21.A1 Myocardial infarction type 2; N17.0 Acute kidney failure with tubular necrosis; I13.0 Hypertensive heart and chronic kidney disease with heart failure and stage 1 through stage 4 chronic kidney disease, or unspecified chronic kidney disease; J44.1 Chronic obstructive pulmonary disease with (acute) exacerbation; E86.0 Dehydration; N18.9 Chronic kidney disease, unspecified; Z20.822 Contact with and (suspected) exposure to COVID-19; D64.9 Anemia, unspecified; Z86.16 Personal history of COVID-19; Z86.73 Personal history of transient ischemic attack (TIA), and cerebral infarction without residual deficits; E66.9 Obesity, unspecified; E11.22 Type 2 diabetes mellitus with diabetic chronic kidney disease; E83.52 Hypercalcemia; E78.5 Hyperlipidemia, unspecified; E03.9 Hypothyroidism, unspecified; Z95.0 Presence of cardiac pacemaker; Z87.891 Personal history of nicotine dependence; Z68.30 Body mass index [BMI] 30.0-30.9, adult; Z79.51 Long term (current) use of inhaled steroids; Z79.84 Long term (current) use of oral hypoglycemic drugs; Z79.82 Long term (current) use of aspirin; Z79.899 Other long term (current) drug therapy; Z79.02 Long term (current) use of antithrombotics/antiplatelets; I70.0 Atherosclerosis of aorta; M85.80 Other specified disorders of bone density and structure, unspecified site; N28.1 Cyst of kidney, acquired
CPT/HCPCS: 36415; 71045-TC; 80048-TC; 80053-TC; 80061-TC; 80076-TC; 82728-TC; 82962-TC; 83540-TC; 83735-TC; 83880; 83970; 84100-TC; 84443-TC; 84484-TC; 85025-TC; 87081-TC; 93307-TC; 97116-TC; 97530-TC; C9803; G0378; J0360; J1650; J1815; J1940; J2270; J2405; J2920